=== PATIENT | male | born 1950 | race Caucasian/White ===

== ENCOUNTER 2018-04-07 13:08 | Observation (INO) | payer OTHER ==
[~2018-04-07] VITALS: Ht 175.3 cm; Wt 81.1 kg
[2018-04-07] MEDS ORDERED: ASPI81CH PO (13:22)
[2018-04-07] MEDS ORDERED: CENTRUM SILVER1 EAC2 PO (13:22)
[2018-04-07] MEDS ORDERED: LEVSOD75 PO (13:23)
[2018-04-07] MEDS ORDERED: NITR.4SL SL (13:23)
[2018-04-07] MEDS ORDERED: ATEN25 PO (13:23)
[2018-04-07] MEDS ORDERED: ATOR80 PO (13:24)
[2018-04-07] MEDS ORDERED: TAMS.4ER PO (13:24)
[2018-04-07] MEDS ORDERED: GABA300 PO (13:24)
[2018-04-07 14:07] LABS: BASOPHILS ABSOLUTE AUTO 0.06 K/mm3 (0.00-0.23); BASOPHILS PERCENT AUTO 1 % (0-2); EOSINOPHILS ABSOLUTE AUTO 0.24 K/mm3 (0.00-0.68); EOSINOPHILS PERCENT AUTO 4 % (0-6); Hematocrit 41.2 % (37.0-53.0); Hemoglobin 14.2 g/dL (13.5-17.5); IMMATURE GRAN ABSOLUTE AUTO 0.03 K/mm3 (0.00-0.10); IMMATURE GRAN PERCENT AUTO 1 % (0-1); LYMPHOCYTES ABSOLUTE AUTO 1.66 K/mm3 (0.84-5.20); LYMPHOCYTES PERCENT AUTO 26 % (21-46); MONOCYTES PERCENT AUTO 8 % (4-13); Mean Corpuscular HGB 31.8 pg (26.0-34.0); Mean Corpuscular HGB Conc 34.5 g/dL (31.5-36.5); Mean Corpuscular Volume 92 fL (80-100); Mean Platelet Volume 10.4 fL (9.1-12.4); NEUTROPHILS ABSOLUTE AUTO 3.95 K/mm3 (1.96-9.15); NEUTROPHILS PERCENT AUTO 61 % (41-73); Platelet Count 225 K/mm3 (150-400); RDW Coefficient Variation 13.1 % (11.7-14.2); RDW Standard Deviation 44.4 fL (35.1-46.3); Red Blood Cell Count 4.46 M/mm3 (4.30-5.90); White Blood Cell Count 6.44 K/mm3 (4.00-11.30)
[2018-04-07 14:29] LABS: Alanine Aminotransfer (ALT/SGP 29 U/L (12-78); Albumin, Blood 3.8 g/dL (3.4-5.0); Albumin/Globulin Ratio 1.2 (0.8-1.8); Alk Phos 82 U/L (50-136); Anion Gap 8 mmol/L (6-16); Aspartate Aminotrans (AST/SGOT 21 U/L (12-37); Bilirubin, Total 0.9 mg/dL (0.1-1.0); Blood Urea Nitrogen 14 mg/dL (8-24); CO2, Blood 25 mmol/L (21-32); Calcium, Blood 9.1 mg/dL (8.5-10.1); Chloride, Blood 107 mmol/L (98-108); Creatinine, Blood 1.56 mg/dL (0.60-1.20); Globulin, Blood 3.1 g/dL (2.2-4.0); Glomerular Filtration Rate 47 (60-); Glucose, Blood 98 mg/dL (70-99); Potassium, Blood 3.9 mmol/L (3.5-5.5); Sodium, Blood 140 mmol/L (136-145); Total Protein, Blood 6.9 g/dL (6.4-8.2); Troponin I <0.015 ng/mL (0.000-0.040)
[2018-04-07] MEDS ORDERED: CLOP75 PO (17:26)
[2018-04-08 02:10] LABS: CHOL/HDL RATIO 3.3; Cholesterol 133 mg/dL (50-200); HDL Cholesterol 40 mg/dL (>39); LDL/HDL RATIO 1.7; Low Density Lipoprotein Chol 66 mg/dL (0-110); Triglycerides 134 mg/dL (30-160); Very Low Density Lipoprot Chol 26 mg/dL (6-32)
== END 2018-04-09 16:55 | disposition home or self-care (01) ==
LOC: ER 13:08 → MEDS 13:09 → ENPENDDIS 04-09 16:27 → MEDS 04-09 16:55
PROVIDERS: Emergency Medicine; Internal Medicine
DX: R07.89 Other chest pain (principal); I25.2 Old myocardial infarction; E03.9 Hypothyroidism, unspecified; F17.210 Nicotine dependence, cigarettes, uncomplicated; N40.0 Benign prostatic hyperplasia without lower urinary tract symptoms; I25.10 Atherosclerotic heart disease of native coronary artery without angina pectoris; G62.9 Polyneuropathy, unspecified; Z79.82 Long term (current) use of aspirin; Z79.899 Other long term (current) drug therapy; Z95.5 Presence of coronary angioplasty implant and graft; Z95.1 Presence of aortocoronary bypass graft
CPT/HCPCS: 36415; 71046; 78452; 80053; 80061; 83880; 84484; 85025; 93005; 93010; 93017; 96372; 99285-25; A9500; G0378; J1644; J2785

== ENCOUNTER 2018-10-19 07:30 | Day surgery (SDC) | payer OTHER ==
[~2018-10-19] VITALS: Ht 175.3 cm; Wt 85.4 kg
[~2018-10-19 07:30] MED LIST: ASPI81CH PO; ATEN25 PO; ATOR80 PO; CENTRUM SILVER1 EAC2 PO; CLOP75 PO; GABA300 PO; LEVSOD75 PO; NITR.4SL SL; TAMS.4ER PO
--- NOTE | 2018-10-19 08:18 | NUR ---
10/19/18 0818 Ronda Leong RN NOTIFIED DR NIX THAT PT HAD TAKEN HIS PLAVIX AND ASPIRIN AT [address] NIX CANCELLED THIS PROCEDURE TODAY.
--- NOTE | 2018-10-19 09:06 | NUR ---
10/19/18 0906 Ronda Leong 12.5MG EPHEDRINE GIVEN FOR BP OF 76/[address] NIX AT 0903.
== END 2018-10-19 09:25 | disposition home or self-care (01) ==
LOC: ORSCSDS 07:30
PROVIDERS: Student in an Organized Health Care Education/Training Program
PROC: 0DJ08ZZ Inspection of Upper Intestinal Tract, Via Natural or Artificial Opening Endoscopic (ICD-10-PCS; principal; 2018-10-19 08:45)
DX: K21.9 Gastro-esophageal reflux disease without esophagitis (principal); R12 Heartburn; E03.9 Hypothyroidism, unspecified; Z87.891 Personal history of nicotine dependence; Z79.01 Long term (current) use of anticoagulants; Z79.82 Long term (current) use of aspirin; Z79.899 Other long term (current) drug therapy
CPT/HCPCS: J0330; J1980; J2405; J7120

== ENCOUNTER → 2018-12-11 | Outpatient (CLI) | payer OTHER ==
[2018-12-11 10:35] LABS: Source, Urine Clean Catch
[2018-12-11 13:02] LABS: Bilirubin, Urine Neg (Neg); Blood, Urine Neg (Neg); Glucose Qualitative, Urine Neg (Neg); Ketones, Urine Neg (Neg); Leukocyte Esterase, Urine Neg (Neg); Nitrite, Urine Neg (Neg); Protein, Urine Neg (Neg); Specific Gravity, Urine 1.005 (1.003-1.022); Urobilinogen, Urine NORM (Normal)
[2018-12-11 13:17] LABS: Color, Urine Yellow (P-Yellow)
[2018-12-11 13:18] LABS: Appearance, Urine Clear (Clear)
== END | disposition home or self-care (01) ==
LOC: LAB SHORT 10:34 → LAB 10:34
PROVIDERS: Nurse Practitioner Family
DX: R31.9 Hematuria, unspecified (principal)
CPT/HCPCS: 81003

== ENCOUNTER 2023-05-22 06:43 | Observation (INO) | payer OTHER ==
[2023-05-22] VITALS (13 sets, daily range): BP systolic 98–127; BP diastolic 43–108
[~2023-05-22] VITALS: Ht 175.3 cm; Wt 75.8 kg
[~2023-05-22 06:43] MED LIST changes: +Crestor40 MG PO; +Hytrin1 MG PO; +Isosorbide Mono30 MG PO; +OMEP20ER PO; +Vitamin D1000 UNI1 PO; +ZINC GLUCONATE PO
--- NOTE | 2023-05-22 09:20 | NUR ---
ADMISSION ASSESSMENT: Pt arrived to room PCU13 from . LS clear, HR reg but bradycardic, BT positive. R groin site with no bleeding, swelling, oozing or hematoma. Pt denies CP, groin pain or dizziness. States that he feels good. VSS. Pt is A/O x 4. Laying flat per orders. Pt edcuated on activity restrictions. Pt oriented to room, unit, call light and POC. Denies questions. Call light in reach. Will monitor.
--- NOTE | 2023-05-22 11:00 | NUR ---
report given to GISELLE Small and GISELLE Herrera. NO acute changes and stable at this time. Care transfered.
--- NOTE | 2023-05-22 14:06 | NUR ---
R GROING SITE NO SWELLING, REDNESS, HEMATOMA, DRAINAGE, PT DENIES PAIN AT SITE. PT DENIES CHEST PAIN/PRESSURE. BILATERAL PEDAL PULSES INTACT.
--- NOTE | 2023-05-22 16:42 | NUR ---
AFTER 6 HRS OF LAYING SUPINE, PT SAT UP 30%. PT TOLERATED WELL. NO BLEEDING, PAIN, HEMATOMA, OR DISCHARGE FROM R GROIN SITE. PT DENIES CHEST PAIN/PRESSURE. PT RESTING IN BED, CALL LIGHT WITHIN REACH.
--- NOTE | 2023-05-22 17:13 | NUR ---
SHIFT SUMMARY PT A&OX4. PT REMAINED SUPINE FOR 6 HRS PER PROTOCOL. GRADUALLY MOVED UP PER PROTOCOL. NO PAIN, REDNESS, SWELLING, HEMATOMA, DRAINAGE OF R GROIN SITE. PT DENIES CHEST PAIN/PRESSURE & SOB. VSS SINCE ARRIVAL TO UNIT. PT HR REACHED 48 BRIEFLY WHILE AT REST, RETURNED TO 50'S-60'S WHICH IS PT'S BASELINE. PT TOLERATING FOOD AND LIQUIDS. BED IN LOWEST POSITION, CALL LIGHT WITHIN REACH.
--- NOTE | 2023-05-22 19:05 | NUR ---
Pt. is awake in bed when he welcomes my visit. Pt. is pleasant. Facilitated a life review and focused on his current health. Listened with interest and rapport is built. Pt. displays evidence of awareness and engagement. Prayed for Pt. Pt. verbalized gratitude for the spiritual care visit.
--- NOTE | 2023-05-22 19:55 | NUR ---
ASSESSMENT/ASSUMED CARE PT SITTING UP IN BED WATCHING TV. DENIES PAIN OR DISCOMFORT. PT STATES,"I'M READY TO GO HOME RIGHT NOW". LUNGS CLEAR ON ROOMAIR. RESP EVEN AND NONLABORED. DENIES SOB OR COUGH. HEART RATE SINUS VALE IN THE 50'S. BP STABLE. NO EDEMA. MAEW. RIGHT GROIN SITE CLEAR WITH NO BLEEDING OR HEMATOMA. BT+ ABD SOFT AND NONTENDER. IV LEFT AC SALINE LOCKED. SITE CLEAR. FLUSHED WITHOUT DIFFICULTY.
[2023-05-23 04:25] VITALS: BP 94/51
--- NOTE | 2023-05-23 05:58 | NUR ---
SHIFT SUMMARY PT SLEPT DURING THE NIGHT. VSS. RIGHT GROIN SITE CLEAR AND SOFT. NO BLEEDING OR HEMATOMA NOTED. PT MOVING AND TURNING SELF IN BED. PLAN TO DC TO HOME TODAY. REPORT TO ON COMING NURSE
--- NOTE | 2023-05-23 08:12 | NUR ---
PT DECLINED TAKING MEDS THIS MORNING, STATING "`I'M GOING HOME TODAY AND I"LL TAKE THEM AT HOME."
[2023-05-23] MEDS ORDERED: Amlodipine Bes2.5 MG PO (09:20)
[2023-05-23] MEDS ORDERED: METO25ER PO (09:20)
--- NOTE | 2023-05-23 09:47 | NUR ---
DC HOME WRITTEN & VERBAL DC IMSTRUCTIONS GIVEN TO PT WITH PRESENT, BOTH VERBALIZED GOOD UNDERSTANDING. ALL CONCERNS & QUESTIONS ADDRESSED. GAVE PT NORVASC & LOPRESSOR ORDERED PER MD PRIOR TO DC. NEW MEDS FAXED TO [facility] PER PT REQUEST. PIV DC'D WITH CATH TIP INTACT, NO REDNESS OR SWELLING NOTED. PT HOME WITH ALL PERSONAL BELONGINGS. PT AMBULATED SELF OUT ACCOMPANIED BY PT'S . GAIT STRONG & STEADY.
== END 2023-05-23 09:47 | disposition home or self-care (01) ==
LOC: MHTC 06:43 → PCU 08:19 → MHTC 09:02 → PCU 09:02
PROVIDERS: ADMIT Internal Medicine Interventional Cardiology
DX: I25.700 Atherosclerosis of coronary artery bypass graft(s), unspecified, with unstable angina pectoris (principal); E78.5 Hyperlipidemia, unspecified; I77.9 Disorder of arteries and arterioles, unspecified; N18.32 Chronic kidney disease, stage 3b; I12.9 Hypertensive chronic kidney disease with stage 1 through stage 4 chronic kidney disease, or unspecified chronic kidney disease; Z95.1 Presence of aortocoronary bypass graft
CPT/HCPCS: 76937; 93459; 99152; 99153; A9270; C1760; C1769; C1894; J1644; J2250; J3010; J7030; J7050; Q9967